=== PATIENT | male | born 1955 | race Caucasian/White ===

== ENCOUNTER 2017-01-13 10:27 | Observation (INO) ==
[2017-01-13] MEDS ORDERED: NS 1,000 ML ONE (11:28)
[2017-01-13 11:32] LABS: MANUAL DIFF NEEDED? NO
[2017-01-13 11:33] LABS: BASO% 0.4 % (0.0-0.8); EOS# 0.22 X1000 (0.0-0.7); EOS% 1.4 % (0.0-10.0); HEMATOCRIT 45.6 % (42.0-52.0); HEMOGLOBIN 15.3 g/dL (14.0-18.0); IMM GRAN# 0.18 X1000 (0.0-0.04); IMM GRAN% 1.1 % (0.0-0.5); LYMPH# 2.26 X1000 (1.2-3.4); MCH 29.3 PG (27-31); MCHC 33.6 g/dL (33-37); MCV 87.4 FL (81-99); MONO# 1.69 X1000 (0.11-0.59); MONO% 10.4 % (1.7-9.3); NEUT% 72.7 % (42.2-75.2); PLT 466 X1000 (130-400); RBC 5.22 XMIL (4.7-6.1)
[2017-01-13] MEDS ORDERED: NS 1,000 ML IV ONE ×3 (11:33→14:03)
[2017-01-13 11:53] LABS: CALCIUM 11.4 mg/dL (8.8-10.2); MAGNESIUM 2.4 mg/dL (1.5-2.7); POTASSIUM 4.2 mmol/L (3.5-5.1); TOTAL BILIRUBIN 0.6 mg/dL (0.20-1.00); TOTAL PROTEIN 8.2 g/dL (6.3-8.3)
--- NOTE | 2017-01-13 12:25 | EKG Report ---
Test Performed on : 01/13/2017 11:33:57 AM Test Reason : NEAR SYNCOPE Blood Pressure : / mmHG Vent. Rate : 073 BPM Atrial Rate : 073 BPM P-R Int : 156 ms QRS Dur : 090 ms QT Int : 374 ms P-R-T Axes : 056 036 029 degrees QTc Int : 412 ms Normal sinus rhythm. Normal ECG No previous ECGs available Unconfirmed Result
[2017-01-13 12:53] LABS: CK INDEX 1.3 (0.0-2.5); CK-MB 4.06 ng/mL (0.0-5.0)
[2017-01-13 14:30] LABS: CK INDEX 1.3 (0.0-2.5); CK-MB 3.15 ng/mL (0.0-5.0)
[2017-01-13] MEDS ORDERED: CATAPRES PO PRN (17:52)
[2017-01-13] MEDS: NS 1,000 ML IV SCH (18:02)
[2017-01-14] MEDS: NS 1,000 ML IV SCH ×5 (00:27→23:47)
[2017-01-14 06:05] LABS: MANUAL DIFF NEEDED? NO
[2017-01-14 06:14] LABS: BASO% 0.5 % (0.0-0.8); EOS# 0.43 X1000 (0.0-0.7); EOS% 4.4 % (0.0-10.0); HEMATOCRIT 40.3 % (42.0-52.0); HEMOGLOBIN 13.1 g/dL (14.0-18.0); IMM GRAN# 0.08 X1000 (0.0-0.04); IMM GRAN% 0.8 % (0.0-0.5); LYMPH# 2.73 X1000 (1.2-3.4); MCH 28.8 PG (27-31); MCHC 32.5 g/dL (33-37); MCV 88.6 FL (81-99); MONO# 1.36 X1000 (0.11-0.59); MPV 9.9 FL (7.4-10.4); NEUT% 52.3 % (42.2-75.2); PLT 381 X1000 (130-400); RBC 4.55 XMIL (4.7-6.1)
[2017-01-14 06:33] LABS: CALCIUM 8.6 mg/dL (8.8-10.2); MAGNESIUM 1.9 mg/dL (1.5-2.7); POTASSIUM 4.2 mmol/L (3.5-5.1)
--- NOTE | 2017-01-14 12:14 | HISTORY AND PHYSICAL ---
CHIEF COMPLAINT: Generalized weakness. HISTORY OF PRESENT ILLNESS: Mr. Beto Simmons is a 61-year-old gentleman who presented to the emergency room earlier today after he was progressively feeling weak for the past 2 days. He states that he works as a construction director out in [place] and because of the excessive heat he was feeling weak and today he had some cramping in his shoulders along with headache and generalized weakness. He decided to be brought to the emergency room. He did have a history of heat stroke about 2 years ago for which he had to be admitted to [facility] for IV hydration. He denies having any chest pain but did complain of having some dizziness. PAST MEDICAL HISTORY: 1. Hypertension. 2. Dyslipidemia. 3. Morbid obesity. PAST SURGICAL HISTORY: None. SOCIAL HISTORY: Patient does not smoke any tobacco products nor does he drink any alcohol. He lives with his . ALLERGIES: No known drug allergies reported. CURRENT HOME MEDICATIONS: 1. Amlodipine 10 mg orally once daily. 2. Lisinopril/hydrochlorothiazide 20 mg/12.5 mg orally once daily. 3. Fenofibrate 160 mg orally once daily. 4. BC powder on as-needed basis for headache. REVIEW OF SYSTEMS: A full 14-point review of systems was obtained that was pretty much the same as already had been explained in the HPI. PHYSICAL EXAMINATION: VITAL SIGNS: Temperature 98.2 degrees, pulse 60 per minute, respiratory rate 18 per minute, blood pressure 131/54, pulse ox 98% on room air. GENERAL: Patient is alert and oriented x3. He does not appear to be in any acute distress. HEENT: Within normal limits. NECK: Supple without any thyromegaly. LYMPHATICS: No lymphadenopathy noted in the neck region. CHEST: Chest wall is nontender. CARDIOVASCULAR SYSTEM: First and second heart sounds are audible without any murmurs or gallops. RESPIRATORY SYSTEM: No respiratory distress noted. Bilateral lung air entry is good without any rales or rhonchi. GASTROINTESTINAL SYSTEM: Abdomen is nondistended. It is soft and nontender on palpation. Patient is morbidly obese however. MUSCULOSKELETAL SYSTEM: No deformities are present. NEUROLOGIC: No focal deficits are present. GENITOURINARY: Deferred. PSYCHIATRIC: Normal affect noted. INTEGUMENTARY: Skin is warm, dry, and also without any rash. DIAGNOSTIC DATA: CBC shows WBC count of 616.20 and platelet count of 466,000. Rest of the CBC is nondiagnostic. Chemistry showed sodium of 137, potassium 4.2, chloride 97, CO2 23, BUN 45, and creatinine 3.6. Calcium levels were found to be 11.4. Total CPK was minimally elevated at 234. CK-MB was found to be 3.15 and troponin were negative at 0.010. LFTs were within normal limits. ECG obtained at the emergency room showed normal sinus rhythm with a ventricular rate of 73 beats per minute without any ST or T-wave abnormalities. IMPRESSION: 1. Acute kidney injury secondary to dehydration secondary to heat stroke with possible contribution from the hydrochlorothiazide that the patient has been taking. 2. History of hypertension and dyslipidemia along with morbid obesity. PLAN: The patient has been admitted to the medical/surgical floor at [facility] in observation and we are going to continue with IV fluids, normal saline aggressively. I am going to hold his antihypertensive medicines including amlodipine and lisinopril/ hydrochlorothiazide at this time. I am also going to hold his fenofibrate and give him only clonidine 0.1 mg orally every 6 hours as needed for elevated blood pressure. We will repeat labs including CBC, BMP, and magnesium levels in the morning tomorrow. Probably he can be discharged home within the next 48 hours after he gets better with improved BUN and creatinine. cc: MD Prosper Shin MD
[2017-01-15 06:45] LABS: CALCIUM 8.5 mg/dL (8.8-10.2); POTASSIUM 4.5 mmol/L (3.5-5.1)
[2017-01-15 11:55] VITALS: BP 137/70
--- NOTE | 2017-01-16 05:38 | DISCHARGE SUMMARY ---
ADMISSION DATE: 01/13/2017 DISCHARGE DATE: 01/15/2017 DISCHARGE DIAGNOSES: 1. Acute kidney injury secondary to dehydration that is secondary to heat stroke. 2. History of hypertension, dyslipidemia, and morbid obesity. HOSPITAL COURSE: The patient, Mr. Beto Simmons, is a 61-year-old, gentleman who presented to the emergency department with a 2 day history of progressively worsening weakness. He was diagnosed as having heat stroke with acute kidney injury and therefore was admitted to the hospital for IV hydration. We held his antihypertensive medicines including lisinopril/hydrochlorothiazide along with amlodipine, and aggressively hydrated him with normal saline intravenously. The patient's condition has improved and his creatinine levels have come down from 3.6 to 1.3. He feels much better and denies having any complaints. His blood pressure has been within normal range despite the fact that we held his antihypertensive medicines. Would therefore discontinue his antihypertensive medicines altogether. I have advised him to take a low- salt diet and monitor his blood pressure at home. DISCHARGE MEDICATIONS: Aspirin 81 mg orally once daily. FOLLOWUP: He will follow with Dr. Nguyen in approximately 2 weeks. CONDITION: Stable. DISPOSITION: Home. cc: MD New Rao MD
== END 2017-01-15 11:36 | disposition home or self-care (01) ==
LOC: P.ED 10:27 → P.MEDSURG 10:27
PROVIDERS: ADMIT Internal Medicine; ATTEND Internal Medicine